=== PATIENT | female | born 1985 | race Hispanic/Latino ===

== ENCOUNTER 2018-04-24 01:27 | Emergency (ER) | payer BC ==
[~2018-04-24] VITALS: Ht 170.2 cm; Wt 108.9 kg
[2018-04-24 02:51] VITALS: BP 150/104
[2018-04-24] MEDS ORDERED: LOSARTAN POTAS100 MG PO (03:05)
[2018-04-24] MEDS ORDERED: ATORVASTATIN CA20 MG PO (03:05)
[2018-04-24] MEDS ORDERED: SYNTHROID100 MCG PO (03:05)
[2018-04-24] MEDS ORDERED: METFORMIN HCL500 MG PO (03:05)
[2018-04-24] MEDS ORDERED: METOPROLOL TART50 MG PO (03:05)
[2018-04-24] MEDS ORDERED: HYDRALAZINE HCL25 MG PO (03:05)
== END 2018-04-24 03:05 | disposition home or self-care (01) ==
LOC: ER 01:27
DX: R06.00 Dyspnea, unspecified (principal); F41.9 Anxiety disorder, unspecified; R06.4 Hyperventilation
CPT/HCPCS: 93005; 99282

== ENCOUNTER 2024-11-02 16:19 | Emergency (ER) | payer BC ==
[~2024-11-02] VITALS: Ht 170.2 cm; Wt 108.9 kg
[~2024-11-02 16:19] MED LIST: ATORVASTATIN CA20 MG PO; HYDRALAZINE HCL25 MG PO; LOSARTAN POTAS100 MG PO; METFORMIN HCL500 MG PO; METOPROLOL TART50 MG PO; SYNTHROID100 MCG PO
[2024-11-02 16:59] LABS: BASOPHILS # (AUTO) 0.1 (0.0-0.1); BASOPHILS % 0.7 % (0.0-1.0); EOSINOPHILS # (AUTO) 0.2 (0.0-0.4); HEMATOCRIT 42.5 % (34.2-44.1); HEMOGLOBIN 13.5 g/dL (12.0-16.0); LYMPHOCYTES # (AUTO) 3.2 (1.0-3.2); LYMPHOCYTES % 27.8 % (18.0-39.1); MEAN CORPUSCULAR HEMOGLOBIN 29.2 pg (28-32); MEAN CORPUSCULAR HGB CONC 31.8 g/dL (31-35); MEAN CORPUSCULAR VOLUME 91.8 fL (81-99); MONOCYTES # (AUTO) 0.6 (0.2-0.8); MONOCYTES % 5.6 % (4.4-11.3); NEUTROPHILS # (AUTO) 7.2 (2.1-6.9); PLATELET COUNT 284 x10e3/uL (140-360); RED BLOOD COUNT 4.63 x10e6/uL (3.6-5.1); RED CELL DISTRIBUTION WIDTH 13.3 % (11.7-14.4); WHITE BLOOD COUNT 11.35 x10e3/uL (4.8-10.8)
[2024-11-02 17:20] LABS: ALBUMIN 4.5 g/dL (3.5-5.0); ALBUMIN/GLOBULIN RATIO 1.4 (0.8-2.0); ANION GAP 16.9 mmol/L (8-16); BILIRUBIN,TOTAL 0.4 mg/dL (0.2-1.2); CALCIUM 9.9 mg/dL (8.4-10.2); CREATININE, SERUM 0.68 mg/dL (0.57-1.11); POTASSIUM 3.9 mmol/L (3.5-5.1); TOTAL PROTEIN 7.7 g/dL (6.5-8.1)
[2024-11-02 17:26] LABS: TROPONIN I 0.002 ng/mL (0-0.300)
[2024-11-02] MEDS: SODIUM CHLORIDE 0.9% 500ML 500 ML IV STA (17:28)
[2024-11-02] MEDS: BELLADONNA ALK/PHENOBARBITAL 5 ML UDC PO STA (17:28)
[2024-11-02] MEDS: LIDOCAINE VISC 2% SOLN 15 ML UDC PO ONE (17:29)
[2024-11-02] MEDS: MAGNESIUM/ALUMINUM/SIMETHICONE 30 ML UDC PO ONE (17:29)
[2024-11-02] MEDS: ONDANSETRON HCL INJ 2MG/ML 2ML 2 MG/ML VIAL IV STA (17:29)
[2024-11-02] MEDS ORDERED: OMEPRAZOLE40 MG PO (17:55)
[2024-11-02 19:16] VITALS: PULSE 66; RESP 13; TEMP 98.2; O2SAT 100
== END 2024-11-02 19:27 | disposition home or self-care (01) ==
LOC: ER 17:01
DX: R10.13 Epigastric pain (principal); R07.89 Other chest pain; R11.0 Nausea; I10 Essential (primary) hypertension; E11.9 Type 2 diabetes mellitus without complications; E03.9 Hypothyroidism, unspecified; F41.9 Anxiety disorder, unspecified; F17.210 Nicotine dependence, cigarettes, uncomplicated
CPT/HCPCS: 36415; 71045; 80053; 83690; 84484; 85025; 93005; 99284; J2405; J2470; J7040

== ENCOUNTER 2025-06-04 12:19 | Emergency (ER) | payer BC ==
[~2025-06-04] VITALS: Ht 170.2 cm; Wt 103.4 kg
[~2025-06-04 12:19] MED LIST changes: +OMEPRAZOLE40 MG PO
[2025-06-04 13:00] VITALS: TEMP 98.4
[2025-06-04 13:37] LABS: BASOPHILS % 0.8 % (0.0-1.0); EOSINOPHILS % 2.2 % (0.0-6.0); LYMPHOCYTES % 30.8 % (18.0-39.1); MONOCYTES % 6.6 % (4.4-11.3); NEUTROPHILS % 58.9 % (38.7-80.0); RED CELL DISTRIBUTION WIDTH 12.8 % (11.7-14.4)
[2025-06-04] MEDS: SODIUM CHLORIDE 0.9% 1000ML 1,000 ML IV STA (13:54)
[2025-06-04] MEDS ORDERED: IOPAMIDOL 370 MG/ML 100 ML INFUS..BTL INJ ONE (13:55)
[2025-06-04] MEDS ORDERED: SODIUM CHLORIDE 0.9% 100 ML ONE (13:55)
[2025-06-04 13:59] LABS: INR 0.88
[2025-06-04 14:09] LABS: EST GLOMERULAR FILTRATION RATE 114 ML/MIN (>=60)
[2025-06-04 16:09] VITALS: PULSE 62; RESP 16
[2025-06-04] MEDS ORDERED: VALTREX1000 MG PO (17:16)
[2025-06-04] MEDS ORDERED: PREDNISONE50 MG PO (17:16)
[2025-06-04 17:26] VITALS: BP 124/83; PULSE 72; RESP 16; TEMP 97.8; O2SAT 96
== END 2025-06-04 17:28 | disposition home or self-care (01) ==
LOC: ER 13:18
DX: G51.0 Bell's palsy (principal); I10 Essential (primary) hypertension; E11.9 Type 2 diabetes mellitus without complications; E03.9 Hypothyroidism, unspecified; F41.9 Anxiety disorder, unspecified; E78.5 Hyperlipidemia, unspecified; Z88.5 Allergy status to narcotic agent; Z88.8 Allergy status to other drugs, medicaments and biological substances
CPT/HCPCS: 36415; 70450; 70496; 70498; 71045; 80053; 82948; 83735; 84443; 84484; 84702; 85025; 85610; 85730; 93005; 99284; J7030; J7050; Q9967